=== PATIENT | female | born 1950 | race Caucasian/White ===

== ENCOUNTER 2025-07-13 13:41 | Emergency (ER) | payer OTHER, MEDICARE ==
[~2025-07-13] VITALS: Ht 160 cm; Wt 102.0 kg
[2025-07-13] MEDS ORDERED: LANTUS SOL100 UNIT/1 SUB-Q (13:57)
[2025-07-13] MEDS ORDERED: ASPIRIN81 MG PO (13:59)
[2025-07-13] MEDS ORDERED: HYDROmorphone HCL 1 MG/ML SYR IV ONE (14:15)
[2025-07-13 14:30] LABS: BASOPHILS 0.8 % (0.1-1.2); EOSINOPHILS 4.4 % (0.7-5.8); LYMPHOCYTES 18.2 % (19.3-51.7); MCH 29.8 PG (25.6-32.2); MCHC 33.3 g/dL (32.2-35.5); MCV 89.4 fL (79.4-94.8); MONOCYTES 6.8 % (4.7-12.5); NEUTROPHILS 68.7 % (34.0-71.1); RBC 4.90 M/uL (3.93-5.22)
[2025-07-13] MEDS ORDERED: ACETAMINOPHEN 500 MG TAB PO ONE (14:45)
[2025-07-13 14:47] LABS: INR 0.99 (0.80-1.30); PROTIME 12.4 Sec (11.2-14.2)
[2025-07-13 14:51] LABS: ALCOHOL, MEDICAL <3 ng/dL (<3); ALT (SGPT) 14 U/L (14-59); AST (SGOT) 16 U/L (15-37); GLOMERULAR FILTRATION RATE,EST 53 mL/min (>60); PROTEIN, TOTAL 7.1 g/dL (6.4-8.2); UREA NITROGEN 18 mg/dL (7-18)
[2025-07-13] MEDS ORDERED: IBUPROFEN 600 MG TAB PO ONE (15:45)
[2025-07-13] MEDS ORDERED: POTASSIUM CHLORIDE 20 MEQ/15 ML CUP PO ONE (15:45)
[2025-07-13] MEDS ORDERED: OXYMETAZOLINE HCL 30 ML BTL NAS ONE (16:00)
[2025-07-13 16:24] VITALS: BP 107/67
== END 2025-07-13 16:20 | disposition home or self-care (01) ==
LOC: ED 13:41
PROVIDERS: Emergency Medicine
DX: S01.111A Laceration without foreign body of right eyelid and periocular area, initial encounter (principal); S01.511A Laceration without foreign body of lip, initial encounter; M25.00 Hemarthrosis, unspecified joint; R07.89 Other chest pain; M25.551 Pain in right hip; E11.9 Type 2 diabetes mellitus without complications; I10 Essential (primary) hypertension; W18.30XA Fall on same level, unspecified, initial encounter; Y92.002 Bathroom of unspecified non-institutional (private) residence as the place of occurrence of the external cause
CPT/HCPCS: 36415; 70450; 71250; 72125; 73560; 74176; 80053; 85025; 85610; 85730; 99284-25; A9270; G0480